=== PATIENT | male | born 1985 | race Caucasian/White ===

== ENCOUNTER 2024-08-24 10:08 | Inpatient (IN) | payer BC, MEDICAID ==
[~2024-08-24] VITALS: Ht 175.3 cm; Wt 128.6 kg
[~2024-08-24 10:08] MED LIST: Atorvastatin Calcium PO; CARV3.1289 PO; CLOP75TA34 PO; Lisinopril PO; NITR0.4T51 SL
[2024-08-24 11:27] LABS: ALANINE AMINOTRANSFERASE 58 U/L (12-78); ALBUMIN 3.9 G/DL (3.4-5.0); ALBUMIN/GLOBULIN RATIO 0.9 (1.1-1.5); ALKALINE PHOSPHATASE 93 IU/L (46-116); ANION GAP 14 (8-16); ASPARTATE AMINO TRANSFERASE 38 U/L (10-37); BILIRUBIN,TOTAL 0.4 MG/DL (0.1-1.0); BLOOD UREA NITROGEN 7 MG/DL (7-18); BUN/CREATININE RATIO 7.5 (10.0-20.0); CALCIUM 9.1 MG/DL (8.5-10.1); CHLORIDE 104 MMOL/L (99-107); CREATININE 0.93 MG/DL (0.60-1.10); GLUCOSE 119 MG/DL (70-104); POTASSIUM 3.4 MMOL/L (3.5-5.1); SODIUM 142 MMOL/L (135-145); TOTAL CARBON DIOXIDE 23.9 MMOL/L (24-32); TOTAL PROTEIN 8.2 G/DL (6.4-8.2); eCRCL 107 ML/MIN; eGFR 90 ML/MIN
[2024-08-24 11:29] LABS: BASOPHILS # (AUTO) 0.2 X10'3 (0-0.2); BASOPHILS % (AUTO) 2.4 % (0-1); EOSINOPHILS % (AUTO) 0.5 % (0-6); HEMATOCRIT 50.5 % (42.0-52.0); LYMPHOCYTES # (AUTO) 3.4 X10'3 (1.1-4.8); LYMPHOCYTES % (AUTO) 46.4 % (21-51); MEAN CORPUSCULAR HEMOGLOBIN 31.7 PG (27.0-31.0); MEAN CORPUSCULAR HGB CONC 35.8 g/dL (33.0-36.5); MEAN CORPUSCULAR VOLUME 88.5 FL (78-98); MEAN PLATELET VOLUME 7.2 FL (7.4-10.4); MONOCYTES # (AUTO) 0.6 X10'3 (0-0.9); MONOCYTES % (AUTO) 7.9 % (2-12); NEUTROPHILS # (AUTO) 3.1 X10'3 (1.8-7.7); NEUTROPHILS % (AUTO) 42.8 % (42-75); PLATELET COUNT 293 X10'3 (140-440); RED BLOOD COUNT 5.71 X10'6 (4.70-6.10); RED CELL DISTRIBUTION WIDTH 15.1 % (11.5-14.5); WHITE BLOOD COUNT 7.3 X10'3 (4.5-11.0)
[2024-08-24 11:45] LABS: PRO BRAIN NATRIURETIC PEPTIDE 220 PG/ML (0-125)
[2024-08-24 11:46] LABS: HEMOGLOBIN 18.1 g/dl (14.0-17.9)
[2024-08-24 11:52] LABS: PLATELET ESTIMATE NORMAL; TOTAL CELLS COUNTED 100
[2024-08-24 11:57] LABS: ETHANOL 357 MG/DL (<10)
[2024-08-24] MEDS: normal saline 1000ml 1,000 ML IV ONE (12:11)
[2024-08-24] MEDS: aspirin 81mg, enteric-coated 1 TAB TABLET.DR PO ONE (14:51)
[2024-08-24] MEDS ORDERED: NO HOME MEDS (14:57)
[2024-08-24] MEDS ORDERED: morphine 2 MG/ML inj. syringe IV PRN (15:25)
[2024-08-24] MEDS ORDERED: potassium Cl 40MEQ/1/2NS 520ml 520 ML IV PRN (15:25)
[2024-08-24] MEDS ORDERED: ondansetron/PF 4mg/2ml inj IV PRN (15:25)
[2024-08-24] MEDS ORDERED: mag hydrox/Alum hydrox/simeth 30ml oral suspension PO PRN (15:25)
[2024-08-24] MEDS ORDERED: magnesium sulf-water 2g/50mL 50 ML IV PRN (15:25)
[2024-08-24] MEDS ORDERED: HYDROcodone/acetaminophen 5mg/325mg tablet PO PRN (15:25)
[2024-08-24] MEDS ORDERED: magnesium sulf-water 4G/100mL 100 ML IV PRN (15:25)
[2024-08-24] MEDS ORDERED: magnesium Cl slow-release 64mg tablet PO PRN (15:25)
[2024-08-24] MEDS ORDERED: acetaminophen 325mg tablet PO PRN ×2 (15:25)
[2024-08-24] MEDS ORDERED: haloperidol 5mg tablet PO PRN (15:30)
[2024-08-24] MEDS ORDERED: haloperidol lactate 5mg/ml inj IM PRN (15:30)
[2024-08-24] MEDS ORDERED: LORazepam 2 mg/ml vial IV PRN (15:30)
[2024-08-24] MEDS: normal saline 1000ml 1,000 ML IV SCH (15:46)
[2024-08-24 17:00] LABS: LIPASE 74 U/L (16-77)
[2024-08-24 17:19] LABS: BILIRUBIN,URINE NEGATIVE (Neg); CLARITY,URINE CLEAR (Clear); COLOR,URINE YELLOW (Yellow); GLUCOSE, URINE NEGATIVE (Neg); KETONES,URINE NEGATIVE (Neg); LEUKOCYTE ESTERASE ,URINE NEGATIVE (Neg); NITRITES, URINE NEGATIVE (Neg); OCCULT BLOOD,URINE NEGATIVE (Neg); PROTEIN,URINE NEGATIVE (Neg); UROBILINOGEN,URINE 0.2 E.U/dL (0.2-1.0)
[2024-08-24 17:25] LABS: UA COLLECTION TYPE NON-SPECIFIED; URINE AMPHETAMINE SCREEN NEGATIVE (Neg); URINE BARBITUATE SCREEN NEGATIVE (Neg); URINE BENZODIAZEPINES SCREEN NEGATIVE (Neg); URINE CANNABINOID SCREEN NEGATIVE (Neg); URINE COCAINE SCREEN NEGATIVE (Neg); URINE METHADONE SCREEN NEGATIVE (Neg); URINE OPIATE SCREEN NEGATIVE (Neg); URINE PHENCYCLIDINE SCREEN NEGATIVE (Neg)
[2024-08-24] MEDS ORDERED: iohexol 350MG/ML 100ml bottle IV ONE (17:55)
[2024-08-24 18:10] LABS: ABG HCO3 20.2 mmol/L (21.0-28.0); ABG OXYGEN SATURATION 96.8 % (94.0-98.0); ABG PCO2 (T) 31.7 mmHg (35.0-48.0); ABG PH (T) 7.422 (7.350-7.450); ABG PO2 (T) 91.8 mmHg (83.0-108.0); ALLEN'S TEST POSITIVE; FHHb 3.2 % (0.0-5.0); FMetHb 0.1 % (0.0-1.5); FO2Hb 96.7 % (94.0-98.0); MODE ROOM AIR; TOTAL HEMOGLOBIN 16.4 G/dl (13.5-17.5)
[2024-08-24] MEDS ORDERED: nitroGLYCERIN 0.4mg SUBLingual tab SL PRN (18:35)
[2024-08-24] MEDS: multivitamins, therapeutics tablet PO SCH (19:33)
[2024-08-24] MEDS: clopidogrel 75mg tablet PO SCH (19:33)
[2024-08-24] MEDS: atorvastatin 20mg tablet PO SCH (19:33)
[2024-08-24] MEDS: lisinopril 10 MG tablet PO SCH (19:34)
[2024-08-24] MEDS: pantoprazole 40mg Tablet.DR PO SCH (20:45)
[2024-08-24] MEDS: carVEDilol 3.125mg tablet PO SCH (20:45)
[2024-08-24] MEDS: heparin, porcine 5000 units/ml vial SQ SCH (20:46)
[2024-08-24] MEDS: thiamine 100mg/ml 2ml inj. IV SCH (20:47)
[2024-08-24] MEDS: LORazepam 1 MG tablet PO PRN (23:15)
[2024-08-24 23:45] VITALS: BP 145/95; PULSE 98; RESP 19; TEMP 97.5; O2SAT 99
[2024-08-25] VITALS (16 sets, daily range): BP systolic 160–210; BP diastolic 103–140; PULSE 90–133; RESP 12–22; TEMP 97.7–98.8; O2SAT 96–100
[2024-08-25] MEDS: potassium Cl 20 mEq SR tablet PO PRN ×2 (04:18→11:19)
[2024-08-25] MEDS: lisinopril 10 MG tablet PO ONE (04:53)
[2024-08-25 06:00] LABS: EOSINOPHILS % (AUTO) 0.5 % (0-6); LYMPHOCYTES # (AUTO) 2.3 X10'3 (1.1-4.8); MONOCYTES # (AUTO) 0.6 X10'3 (0-0.9)
[2024-08-25 06:02] LABS: BASOPHILS # (AUTO) 0.1 X10'3 (0-0.2); BASOPHILS % (AUTO) 1.3 % (0-1); HEMATOCRIT 47.1 % (42.0-52.0); HEMOGLOBIN 16.5 g/dl (14.0-17.9); LYMPHOCYTES % (AUTO) 30.3 % (21-51); MEAN CORPUSCULAR HEMOGLOBIN 30.8 PG (27.0-31.0); MEAN CORPUSCULAR VOLUME 87.9 FL (78-98); MEAN PLATELET VOLUME 7.5 FL (7.4-10.4); MONOCYTES % (AUTO) 7.7 % (2-12); NEUTROPHILS # (AUTO) 4.5 X10'3 (1.8-7.7); NEUTROPHILS % (AUTO) 60.2 % (42-75); PLATELET COUNT 256 X10'3 (140-440); RED BLOOD COUNT 5.36 X10'6 (4.70-6.10); WHITE BLOOD COUNT 7.5 X10'3 (4.5-11.0)
[2024-08-25 06:13] LABS: ALANINE AMINOTRANSFERASE 42 U/L (12-78); ALBUMIN 3.5 G/DL (3.4-5.0); ALKALINE PHOSPHATASE 69 IU/L (46-116); ANION GAP 11 (8-16); ASPARTATE AMINO TRANSFERASE 24 U/L (10-37); BLOOD UREA NITROGEN 5 MG/DL (7-18); CHLORIDE 102 MMOL/L (99-107); GLUCOSE 115 MG/DL (70-104); POTASSIUM 3.3 MMOL/L (3.5-5.1); SODIUM 138 MMOL/L (135-145); TOTAL CARBON DIOXIDE 25.1 MMOL/L (24-32); TOTAL PROTEIN 7.1 G/DL (6.4-8.2); eCRCL 99 ML/MIN; eGFR 83 ML/MIN
[2024-08-25 06:16] LABS: LIPASE 55 U/L (16-77); MAGNESIUM 1.5 MG/DL (1.5-2.4); PHOSPHORUS 3.2 MG/DL (2.3-4.5)
[2024-08-25] MEDS ORDERED: lisinopril 10 MG tablet PO SCH (08:05)
[2024-08-25] MEDS: folic acid 1mg/0.2ml inj IV SCH (08:58)
[2024-08-25] MEDS: multivitamins, therapeutics tablet PO SCH (09:10)
[2024-08-25] MEDS: regadenoson 0.4mg/5ml syringe IV PRN (10:12)
[2024-08-25] MEDS: aminophylline 250mg/10ml inj. IV PRN (10:48)
[2024-08-25] MEDS: metoprolol tartrate 1mg/ml inj IV PRN (11:20)
[2024-08-25] MEDS: labetalol 20mg/4ml (5mg/ml) syringe IV PRN (19:29)
[2024-08-26 02:00] VITALS: BP 186/130; PULSE 86; RESP 16; TEMP 98.3; O2SAT 96
[2024-08-26 02:35] VITALS: BP 134/100
[2024-08-26 06:00] VITALS: BP 179/125; PULSE 75; RESP 18; TEMP 97.8; O2SAT 99
[2024-08-26 07:26] LABS: BASOPHILS # (AUTO) 0.1 X10'3 (0-0.2); EOSINOPHILS # (AUTO) 0.2 X10'3 (0-0.9); EOSINOPHILS % (AUTO) 2.5 % (0-6); HEMATOCRIT 44.8 % (42.0-52.0); HEMOGLOBIN 15.9 g/dl (14.0-17.9); LYMPHOCYTES % (AUTO) 30.8 % (21-51); MEAN CORPUSCULAR HEMOGLOBIN 31.5 PG (27.0-31.0); MEAN CORPUSCULAR HGB CONC 35.6 g/dL (33.0-36.5); MEAN CORPUSCULAR VOLUME 88.4 FL (78-98); MEAN PLATELET VOLUME 7.7 FL (7.4-10.4); MONOCYTES # (AUTO) 0.5 X10'3 (0-0.9); MONOCYTES % (AUTO) 8.6 % (2-12); NEUTROPHILS # (AUTO) 3.6 X10'3 (1.8-7.7); NEUTROPHILS % (AUTO) 56.1 % (42-75); PLATELET COUNT 211 X10'3 (140-440); RED BLOOD COUNT 5.06 X10'6 (4.70-6.10); RED CELL DISTRIBUTION WIDTH 14.9 % (11.5-14.5); WHITE BLOOD COUNT 6.4 X10'3 (4.5-11.0)
[2024-08-26 07:57] LABS: ALANINE AMINOTRANSFERASE 33 U/L (12-78); ALBUMIN 3.1 G/DL (3.4-5.0); ALBUMIN/GLOBULIN RATIO 0.9 (1.1-1.5); ALKALINE PHOSPHATASE 68 IU/L (46-116); ANION GAP 11 (8-16); ASPARTATE AMINO TRANSFERASE 35 U/L (10-37); BLOOD UREA NITROGEN 9 MG/DL (7-18); BUN/CREATININE RATIO 9.4 (10.0-20.0); CALCIUM 8.6 MG/DL (8.5-10.1); CHLORIDE 104 MMOL/L (99-107); CREATININE 0.96 MG/DL (0.60-1.10); GLUCOSE 111 MG/DL (70-104); LIPASE 67 U/L (16-77); MAGNESIUM 1.8 MG/DL (1.5-2.4); PHOSPHORUS 4.4 MG/DL (2.3-4.5); POTASSIUM 3.5 MMOL/L (3.5-5.1); SODIUM 138 MMOL/L (135-145); TOTAL CARBON DIOXIDE 23.3 MMOL/L (24-32); TOTAL PROTEIN 6.7 G/DL (6.4-8.2); eCRCL 103 ML/MIN; eGFR 87 ML/MIN
[2024-08-26 08:00] VITALS: RESP 16; O2SAT 99
[2024-08-26] MEDS: lisinopril 10 MG tablet PO SCH (08:49)
[2024-08-26] MEDS ORDERED: Lisinopril PO (10:15)
[2024-08-26] MEDS ORDERED: HYDR25TA5 PO (10:32)
[2024-08-26 11:00] VITALS: BP 172/128; PULSE 98; RESP 16; TEMP 97.3; O2SAT 99
[2024-08-26] MEDS: HYDROchlorothiazide 12.5mg capsule PO ONE (12:09)
[2024-08-26] MEDS ORDERED: LISI20TA28 PO (13:22)
[2024-08-26] MEDS ORDERED: CARV3.1232 PO (13:45)
[2024-08-26] MEDS ORDERED: CLOP75TA33 PO (13:45)
[2024-08-26] MEDS ORDERED: ATOR20TA66 PO (13:48)
[2024-08-26] MEDS ORDERED: NITR0.4T48 SL (13:48)
[2024-08-28] MEDS ORDERED: thiamine 100mg tablet PO SCH (08:00)
[2024-08-29] MEDS ORDERED: folic acid 1mg tablet PO SCH (08:00)
== END 2024-08-26 15:46 | disposition home or self-care (01) | DRG 53 ==
LOC: ER 10:08 → ED HOLD 15:28 → PCU 3S 08-25 00:05
PROVIDERS: ADMIT Internal Medicine; ATTEND Internal Medicine
PROC: B32T1ZZ Computerized Tomography (CT Scan) of Left Pulmonary Artery using Low Osmolar Contrast (ICD-10-PCS; principal; 2024-08-24)
PROC: B3201ZZ Computerized Tomography (CT Scan) of Thoracic Aorta using Low Osmolar Contrast (ICD-10-PCS; 2024-08-24)
PROC: B32S1ZZ Computerized Tomography (CT Scan) of Right Pulmonary Artery using Low Osmolar Contrast (ICD-10-PCS; 2024-08-24)
PROC: 4A02XM4 Measurement of Cardiac Total Activity, External Approach (ICD-10-PCS; 2024-08-24)
PROC: 3E033HZ Introduction of Radioactive Substance into Peripheral Vein, Percutaneous Approach (ICD-10-PCS; 2024-08-24)
DX: R56.9 Unspecified convulsions (principal); I21.A1 Myocardial infarction type 2; E66.2 Morbid (severe) obesity with alveolar hypoventilation; I50.22 Chronic systolic (congestive) heart failure; I11.0 Hypertensive heart disease with heart failure; I16.0 Hypertensive urgency; F10.129 Alcohol abuse with intoxication, unspecified; F10.139 Alcohol abuse with withdrawal, unspecified; Z68.41 Body mass index [BMI] 40.0-44.9, adult; I25.2 Old myocardial infarction
CPT/HCPCS: 36415; 36600; 70450; 70496; 70498; 71045; 78452; 80053; 80305; 80320; 81003; 82803; 83690; 83735; 83880; 84100; 84484; 85007; 85018; 85025; 87081; 93005; 93017; 93306; A9500; G0378; J1644; J2785; J3411; J3490; J7030; Q9967